=== PATIENT | male | born 1990 | race African-American/Black ===

== ENCOUNTER 2017-04-13 20:40 | Emergency (ER) | payer SELFPAY ==
[~2017-04-13] VITALS: Ht 175.3 cm; Wt 77.3 kg
[2017-04-13] MEDS ORDERED: HYDROCODONE/ACETAMINOPHEN 5-325 MG TABLET PO ONE (21:45)
[2017-04-13 22:41] VITALS: BP 137/81
== END 2017-04-13 23:28 | disposition home or self-care (01) ==
LOC: EMS 20:41
DX: S62.304A Unspecified fracture of fourth metacarpal bone, right hand, initial encounter for closed fracture (principal); F11.90 Opioid use, unspecified, uncomplicated; W22.01XA Walked into wall, initial encounter; Y93.89 Activity, other specified; Y92.89 Other specified places as the place of occurrence of the external cause; Y99.8 Other external cause status
CPT/HCPCS: 99284